=== PATIENT | male | born 1980 | race Caucasian/White ===

== ENCOUNTER 2020-12-27 14:10 | Emergency (ER) | payer OTHER ==
[2020-12-27 16:31] LABS: EOSINOPHIL 3.2 % (0-5); HCT 46.1 % (42.0-52.0); HGB 15.5 g/dl (13.2-18.0); LYMPHOCYTE 33.3 % (15-48); MCH 33.8 pg (25.0-31.0); MCHC 33.6 g/dL (32.0-36.0); MCV 100.4 fL (78.0-100.0); MONOCYTE 5.3 % (0-12); MPV 11.9 fL (6.0-9.5); NRBC 0; PLT 152 K/uL (150-400); RBC 4.59 M/uL (4.70-6.00); RDW 11.6 % (11.5-14.0); WBC 8.2 K/uL (4.0-10.5)
[2020-12-27 16:43] LABS: BUN/CREAT RATIO (CALC) 14.4 RATIO; CREATININE 1.04 mg/dL (0.67-1.17)
== END 2020-12-27 18:05 | disposition home or self-care (01) ==
LOC: FER 14:10
PROVIDERS: Nurse Practitioner Family
DX: G43.909 Migraine, unspecified, not intractable, without status migrainosus (principal)
CPT/HCPCS: 36415; 70450; 80048; 85025; J1100; J1885; J2405; J7030